=== PATIENT | female | born 1985 | race African-American/Black ===

== ENCOUNTER 2020-12-29 04:41 | Emergency (ER) | payer MEDICAID ==
[~2020-12-29] VITALS: Ht 167.6 cm; Wt 56.0 kg
[2020-12-29] MEDS ORDERED: TETANUS, DIPHTHERIA, PERTUSSIS VAC/PF 0.5ML (>10YR OLD) IM ONE (05:30)
[2020-12-29] MEDS ORDERED: ACETAMINOPHEN 325MG TABLET PO ONE (05:30)
[2020-12-29 05:54] LABS: UCG SCREEN NEGATIVE
[2020-12-29] MEDS ORDERED: LIDOCAINE HCL/PF 1% 10 MG/ML 5ML VIAL INFIL ONE (07:30)
[2020-12-29] MEDS ORDERED: BACITRACIN ZINC OINT UDPKT TOP ONE (07:30)
[2020-12-29 08:50] VITALS: BP 133/89
== END 2020-12-29 08:52 | disposition home or self-care (01) ==
LOC: ER 04:41
DX: S01.21XA Laceration without foreign body of nose, initial encounter (principal); G40.909 Epilepsy, unspecified, not intractable, without status epilepticus; D57.1 Sickle-cell disease without crisis; F12.10 Cannabis abuse, uncomplicated; R01.1 Cardiac murmur, unspecified; Z88.0 Allergy status to penicillin; X99.1XXA Assault by knife, initial encounter; Y93.89 Activity, other specified; Y92.488 Other paved roadways as the place of occurrence of the external cause
CPT/HCPCS: 12011; 70486; 81025; 90471; 90715; 99284; A4217; J3490; Z7610

== ENCOUNTER 2023-07-28 22:14 | Emergency (ER) | payer MEDICAID, OTHER ==
[~2023-07-28] VITALS: Ht 167.6 cm; Wt 68.0 kg
[2023-07-28 22:16] VITALS: TEMP 98.6; O2SAT 98
[2023-07-29 00:05] LABS: BASOPHILS % 0.4 % (0.0-2.0); DIFFERENTIAL COMMENT 0; EOSINOPHILS % 0.4 % (0.0-5.0); HEMATOCRIT. 22.5 % (36.0-48.0); HEMOGLOBIN. 7.3 g/dL (12.0-16.0); LYMPHOCYTES % 8.9 % (20.0-50.0); MEAN CORPUSCULAR HEMOGLOBIN 24.8 pg (28.0-32.0); MEAN CORPUSCULAR HGB CONC 32.6 g/dL (31.0-37.0); MEAN PLATELET VOLUME 8.1 fl (7.4-10.4); MONOCYTES % 5.2 % (2.0-8.0); NEUTROPHILS % 85.1 % (40.0-76.0); PLATELET 190 x1000/uL (130-400); RED BLOOD CELL COUNT 2.95 mill/uL (4.2-5.4); RED CELL DISTRIBUTION WIDTH 19.7 % (11.6-14.6); WHITE BLOOD COUNT 9.6 x1000/uL (4.5-11.0)
[2023-07-29 00:10] LABS: CHLORIDE 96 mEq/L (98-107); SODIUM 130 mEq/L (136-145)
[2023-07-29 00:11] LABS: CALCIUM 8.7 mg/dL (8.7-10.4); CARBON DIOXIDE 28 mEq/L (21-32)
[2023-07-29 00:16] LABS: CREATININE 0.9 mg/dL (0.6-1.0); GLUCOSE 105 mg/dL (70-105); UREA NITROGEN BLOOD 14 mg/dL (9-23)
[2023-07-29 00:17] LABS: B-HCG QUANTITATIVE 23 mIU/mL (<3)
[2023-07-29 00:22] LABS: POTASSIUM 2.8 mEq/L (3.5-5.1)
[2023-07-29] MEDS: SODIUM CHLORIDE 0.9% 1,000 ML IV ONE (00:22)
[2023-07-29] MEDS: ACETAMINOPHEN 1000MG/100ML 100 ML IV ONE (00:28)
[2023-07-29] MEDS ORDERED: POTASSIUM CHLORIDE 20MEQ/PACKET PO NR (02:00)
[2023-07-29] MEDS ORDERED: POTA-204 MT (02:21)
[2023-07-29] MEDS ORDERED: ACET-2708 MT (02:21)
[2023-07-29 02:29] VITALS: BP 112/61; PULSE 94; RESP 17
== END 2023-07-29 02:49 | disposition home or self-care (01) ==
LOC: ER 22:14
DX: O03.9 Complete or unspecified spontaneous abortion without complication (principal); E87.6 Hypokalemia; D64.9 Anemia, unspecified; R56.9 Unspecified convulsions; F12.10 Cannabis abuse, uncomplicated; Z3A.09 9 weeks gestation of pregnancy; Y08.89XA Assault by other specified means, initial encounter; Y93.89 Activity, other specified; Y92.89 Other specified places as the place of occurrence of the external cause; Y99.8 Other external cause status
CPT/HCPCS: 80048; 84702; 85025; 86850; 86900; 86901; 36415; 88309; 76801; 76817; 99285; 96365; J7030; Z7610; J0131